=== PATIENT | male | born 1985 | race Hispanic/Latino ===

== ENCOUNTER 2018-04-25 08:21 | Inpatient (IN) | payer MEDICAID ==
[2018-04-25 08:22] VITALS: BMI 55.3
--- NOTE | 2018-04-25 10:10 | C.PDOC ---
History Of Present Illness 32 year old male patient presents to the ED after being transferred from [facility] for admission to detox. Patient admits to use of heroin. Patient had no issues during transportation. Time Seen by Provider: 04/25/18 08:35 Chief Complaint (Nursing): Substance Abuse History Per: Patient History/Exam Limitations: no limitations Onset/Duration Of Symptoms: Hrs Current Symptoms Are (Timing): Still Present Modifying Factor(s): Other (heroin ) Additional History Per: Patient Past Medical History Reviewed: Historical Data, Nursing Documentation, Vital Signs Vital Signs: Last Vital Signs Temp 98.9 F 04/25/18 08:25 Pulse 64 04/25/18 08:25 Resp 16 04/25/18 08:25 BP 124/83 04/25/18 08:25 Pulse Ox 100 04/25/18 08:25 - Medical History PMH: Denies: Diabetes, Hepatitis, HIV, HTN, Seizures, Sexually Transmitted Disease Surgical History: No Surg Hx - [facility] Procedures APPLICATION OF SPLINT (08/02/03) CLOSURE SKIN & SUBCUTANEOUS NEC (11/29/03) Family History: States: Unknown Family Hx - Social History Hx Tobacco Use: No Hx Alcohol Use: No Hx Substance Use: Yes (opiates - marjauna) - Immunization History Hx Influenza Vaccination: No Hx Pneumococcal Vaccination: No Review Of Systems Psych: Positive for: Other (heroin detox ) Physical Exam - Physical Exam Appears: Non-toxic, No Acute Distress Skin: Normal Color, Warm, Dry Head: Atraumatic, Normacephalic Eye(s): bilateral: Normal Inspection Oral Mucosa: Moist Neck: Supple Chest: Symmetrical, No Deformity Cardiovascular: Rhythm Regular Respiratory: Normal Breath Sounds Extremity: Normal ROM Neurological/Psych: Oriented x3, Normal Speech, Normal Cognition ED Course And Treatment O2 Sat by Pulse Oximetry: 100 (on RA ) Pulse Ox Interpretation: Normal Medical Decision Making Medical Decision Making: Patient transferred for detox admission. Chart and transfer forms reviewed Patient in no distress and to be admitted. Disposition Counseled Patient/Family Regarding: Diagnosis, Need For Followup - Disposition Disposition: HOSPITALIZED Disposition Time: 09:30 Condition: STABLE - POA Present On Arrival: None - Clinical Impression Clinical Impression: Opiate use - PA / [facility] / Resident Statement MD/DO has reviewed & agrees with the documentation as recorded. - Scribe Statement The provider has reviewed the documentation as recorded by the Scribe All medical record entries made by the Scribe were at my direction and personally dictated by me. I have reviewed the chart and agree that the record accurately reflects my personal performance of the history, physical exam, medical decision making, and the department course for this patient. I have also personally directed, reviewed, and agree with the discharge instructions and disposition. Decision To Admit - Pt Status Changed To: Hospital Disposition Of: Inpatient - Admit Certification Admit to Inpatient:: After my assessment, the patient will require hospital ization for at least two midnights. This is because of the severity of symptoms shown, intensity of services needed, and/or the medical risk in this patient being treated as an outpatient. - InPatient: Physician Admission Certification: I certify that this patient requires 2 or more midnights of care for the following reason:: Patient for admission to detox - . Bed Request Type: Regular Admitting Physician: Jhon Pollack Patient Diagnosis: Opiate use
--- NOTE | 2018-04-25 10:27 | PCM.BM ---
<Marian Franklin F - Last Filed: 04/25/18 10:25> Treatment assets and liabiliti Patient Assests: adapts well, insightful, ADL independent, negotiates basic needs Patient Liabilities: relationship conflicts, substance abuse - Milieu Protocol Maintain good personal hygiene: every shift Encourage regular showers, every shift Remind patient to perform daily oral care, every shift Assist patient to perform ADL's Maintain personal safety: every shift Educate patient to report safety concerns to staff, every shift Monitor environment for contraband/sharps Medication safety: Monitor for expected outcome, potential side effects: every shift, Assess barriers to learning: every shift, Assess readiness for medication education: every shift <Clarence Michaud - Last Filed: 04/25/18 15:37> - Diagnosis (1) Opioid use disorder, severe, dependence Status: Acute Interventions: 04/25/18 15:36 * Assess 7x/week regarding severity of withdrawal * Educate regarding risks, benefits, side effects and alternatives of medications * Use Motivational Interviewing for abstinence * Use CBT for relapse prevention * Medication management for withdrawal symptoms * Encourage medication assisted treatment (2) Cannabis use disorder, severe, dependence Status: Acute Interventions: 04/25/18 15:36 * Assess 7x/week regarding severity of withdrawal * Educate regarding risks, benefits, side effects and alternatives of medications * Use Motivational Interviewing for abstinence * Use CBT for relapse prevention * Medication management for withdrawal symptoms * Encourage medication assisted treatment
[2018-04-25] MEDS ORDERED: Aluminum Hydroxide/Magnesium Hydroxide Susp (30 mL) PO PRN (11:00)
--- NOTE | 2018-04-25 15:37 | PCM.PSYCH ---
Initial Psychiatric Evaluation - Initial Psychiatric Evaluation Type of Admission: Voluntary Legal Status: Capacity Chief Complaint (in patient's own words): I made a mistake. I said that I am suicidal just to get more money from my family. History of Present Illness and Precipitating Events: Patient is a 32 years old, single, employed, male with no previous psychiatric history was admitted due to withdrawing from heroin and cannabis. Opioid: Patient started having 3-4 years ago, increased gradually up to 50 bags daily, IV. Before start of heroin patient was using OxyContin, initially prescribed later was getting from Street. Patient reported that currently he was using 10-15 bags daily, IV. Last used yesterday. Longest period of abstinence was one month in July 2015 when patient was in group home. Patient was not contained on 09/04/2015 secondary to overdose on heroin and became unconscious. Patient has history of one detox and no rehabs. Cannabis: Patient started using cannabis at 18 years of age, was using 8th of an oz every 2-3 days last used yesterday. Denied use of any other drugs including cocaine and alcohol. Denied smoking cigarettes. Patient reported that initially he had some altercation with his family in order to get money to buy more drugs. When he didn't get any money from the family he made a statement that he will kill himself by jumping from a bridge. Later patient reported that this was a mistake, he was not suicidal he just made the statement in order to get money from the family. Instead family called 911 and patient was brought to the ER for evaluation. Patient reported that he explained this to police and EMT and later in the ER. During evaluation patient also denied any suicidal or homicidal ideations currently or any time in the past. Patient was in group home in July 2015 due to who is a student rest and also for possession of drugs. He is not on probation. Patient has history of left clavicle repair or November 2013. Patient was born in [place] and has one year of college. He is working. Patient lives with friend. His height is 5 feet 9 inches and weight is 185 pounds. Current Medications: Active Medications Generic Name Dose Route Start Last Admin Trade Name Freq PRN Reason Stop Dose Admin Al Hydrox/Mg Hydrox/Simethicone 30 ml 04/25/18 11:00 Maalox 30 Ml PO TID PRN Indigestion / Heartburn Clonidine HCl 0.1 mg 04/25/18 11:00 Catapres PO Q4 PRN COWS Score More or Equal to 5 Dicyclomine HCl 10 mg 04/25/18 11:03 Bentyl PO Q6 PRN Abdominal Cramps Gabapentin 300 mg 04/25/18 14:00 04/25/18 13:17 Neurontin PO 300 mg TID SWAPNIL Administration Hydroxyzine HCl 25 mg 04/25/18 11:04 Atarax PO Q6 PRN Anxiety Ibuprofen 400 mg 04/25/18 11:01 04/25/18 13:21 Motrin Tab PO 400 mg Q6 PRN Administration Pain, moderate (4-7) Loperamide HCl 2 mg 04/25/18 11:00 Imodium PO Q8 PRN Diarrhea Ondansetron HCl 4 mg 04/25/18 11:00 Zofran Tab PO Q8 PRN Nausea/Vomiting Trazodone HCl 50 mg 04/25/18 22:00 Desyrel PO HS SWAPNIL Past Psychiatric History - Past Psychiatric History Previous Treatment History: None History of Abuse: None reported History of ETOH/Drug Use: See HPI History of Family Illness: None reported Pertinent Medical Hx (Current Medical&Sleep Prob, Allergies): Allergies Allergy/AdvReac Type Severity Reaction Status Date / Time No Known Allergies Allergy Verified 04/25/18 08:27 No Known Home Med 02/06/14 Review of Systems - Psychiatric Psychiatric: As Per HPI, Anxiety, Irritability Mental Status Examination - Personal Presentation Personal Presentation: Looks stated age - Affect Affect: Other (Appropriate) - Motor Activity Motor Activity: Calm - Reliability in Providing Information Reliability in Providing Information: Fair - Speech Speech: Organized - Mood Mood: Anxious - Formal Thought Process Formal Thought Process: No Impairment - Hallucinations/Delusions Hallucinations: Other (None reported) Delusions: Other - Obsessions/Compulsions Obsessions: None Compulsions: None - Cognitive Functions Orientation: Person, Place, Situation, Time Sensorium: Alert Attention/Concentration: Attentive Abstract Thinking: [place] Estimate of Intelligence: Average Judgement: Intact, as evidence by: Insight regarding need for hospitalization Memory: Recent intact, as evidence by: Ability to recall events of the day, Remote intact, as evidenced by: Ability to recall historical events - Risk Risk: Withdrawal, Diminished functioning - Strength & Assets Inventory Strength & Assets Inventory: Family support, Cooperative - Limitations Limitations: Other DSM 5 DX - DSM 5 DSM 5 Diagnosis: Opioid withdrawal Opioid use disorder severe. Cannabis withdrawal. Cannabis use disorder severe - Recommended/Plan of Treatment Treatment Recommendations and Plan of Treatment: Patient education. Supportive therapy. CBT for relapse prevention. NV for abstinence. We'll start methadone taper for opiate withdrawal symptoms. Other when necessary medications. Patient doesn't want to go to any place for follow-up care after discharge from the hospital. Education provided still refused. Projected ELOS: 4-5 days. - Smoking Cessation Smoking Cessation Initiated: No Reason for not providing: Patient does not smoke cigarettes
--- NOTE | 2018-04-26 21:59 | PCM.PYCHPN ---
Psychiatric Progress Note - Psychiatric Progress Note Patient seen today, length of contact: 15 minutes Patient Chief Complaint: I am feeling little better. Problems Identified/Issues Discussed: Patient seen, chart reviewed, case discussed with the staff. Issues related to illness and treatment were discussed with the patient and staff. Reported compliant with treatment with no adverse effect. Calm and cooperative. Reported feeling little better. Still having withdrawal symptoms including shaking, sweating, body aches and headache. Awake, alert and oriented x3. Mood reported as anxious. Affect appropriate. Memory intact. Aftercare discussed with the patient. Denied any delusions, auditory or visual hallucinations, suicidal ideations or homicidal ideations at the time of evaluation. Medical Problems: None reported Diagnostic Results: Reviewed DSM 5 Symptoms Update: Some improvement with treatment. Medication Change: No Medical Record Reviewed: Yes Mental Status Examination - Cognitive Function Orientation: Person, Place, Situation, Time Memory: Intact Attention: WNL Concentration: WNL Association: [facility] Fund of Knowledge: [facility] Decription of patient's judgement and insights: Fair - Mood Mood: Anxious - Affect Affect: Other (Appropriate) - Speech Speech: Appropriate - Formal Thought Process Formal Thought Process: No Impairment Psychotic Thoughts and Behaviors: None - Suicidal Ideation Suicidal Ideation: No - Homicidal Ideation Homicidal Ideation: No Goal/Treatment Plan - Goal/Treatment Plan Need for Continued Stay: Remain at risks for inpatient hospitalization, Discharge may exacerbated symptoms, Severe functional impairment Progress Toward Problem(s) and Goals/Treatment Plan: Patient education. Supportive therapy. CBT for relapse prevention. ND for abstinence. Continue treatment as before. Estimated Date of D/C: 04/29/18 - Smoking Cessation Smoking Cessation Initiated: No
--- NOTE | 2018-04-27 22:26 | PCM.PYCHPN ---
Psychiatric Progress Note - Psychiatric Progress Note Patient seen today, length of contact: 15 minutes Patient Chief Complaint: I am feeling much better. Problems Identified/Issues Discussed: Patient seen, chart reviewed, case discussed with the staff. Issues related to illness and treatment were discussed with the patient and staff. Reported compliant with treatment with no adverse effect. Calm and cooperative. Reported feeling much better. Awake, alert and oriented x3. Mood reported as anxious. Affect appropriate. Memory intact. Aftercare discussed with the patient. Denied any delusions, auditory or visual hallucinations, suicidal ideations or h omicidal ideations at the time of evaluation. Medical Problems: None reported Diagnostic Results: Reviewed DSM 5 Symptoms Update: Improving with treatment. Medication Change: No Medical Record Reviewed: Yes Mental Status Examination - Cognitive Function Orientation: Person, Place, Situation, Time Memory: Intact Attention: WNL Concentration: WNL Association: WNL Fund of Knowledge: WN Decription of patient's judgement and insights: Fair - Mood Mood: Anxious (Less than before) - Affect Affect: Other (Appropriate) - Speech Speech: Appropriate - Formal Thought Process Formal Thought Process: No Impairment Psychotic Thoughts and Behaviors: None - Suicidal Ideation Suicidal Ideation: No - Homicidal Ideation Homicidal Ideation: No Goal/Treatment Plan - Goal/Treatment Plan Need for Continued Stay: Remain at risks for inpatient hospitalization, Discharge may exacerbated symptoms, Severe functional impairment Progress Toward Problem(s) and Goals/Treatment Plan: Patient education. Supportive therapy. CBT for relapse prevention. [place] for abstinence. Continue treatment as before. Estimated Date of D/C: 04/29/18 - Smoking Cessation Smoking Cessation Initiated: No
--- NOTE | 2018-04-28 16:21 | PCM.PYCHPN ---
Psychiatric Progress Note - Psychiatric Progress Note Patient seen today, length of contact: 15 minutes Patient Chief Complaint: I am feeling much better. Problems Identified/Issues Discussed: Patient seen, chart reviewed, case discussed with the staff. Issues related to illness and treatment were discussed with the patient and staff. Reported compliant with treatment with no adverse effect. Tolerating treatment very well. Calm and cooperative. Reported feeling much better. Awake, alert and oriented x3. Mood reported as anxious. Affect appropriate. Memory intact. Aftercare discussed with the patient. Denied any delusions, auditory or visual hallucinations, suicidal ideations or homicidal ideations at the time of evaluation. Medical Problems: None reported Diagnostic Results: Reviewed DSM 5 Symptoms Update: Improving with treatment. Medication Change: No Medical Record Reviewed: Yes Mental Status Examination - Cognitive Function Orientation: Person, Place, Situation, Time Memory: Intact Attention: WNL Concentration: WNL Association: [facility]N Fund of Knowledge: [facility] Decription of patient's judgement and insights: Fair - Mood Mood: Anxious (Much less than before) - Affect Affect: Other (Appropriate) - Speech Speech: Appropriate - Formal Thought Process Formal Thought Process: No Impairment Psychotic Thoughts and Behaviors: None - Suicidal Ideation Suicidal Ideation: No - Homicidal Ideation Homicidal Ideation: No Goal/Treatment Plan - Goal/Treatment Plan Need for Continued Stay: Remain at risks for inpatient hospitalization, Discharge may exacerbated symptoms, Severe functional impairment Progress Toward Problem(s) and Goals/Treatment Plan: Patient education. Supportive therapy. CBT for relapse prevention. [place] for abstinence. Continue treatment as before. Estimated Date of D/C: 04/29/18 - Smoking Cessation Smoking Cessation Initiated: No
[2018-04-29 06:30] VITALS: RESP 18
--- NOTE | 2018-04-29 09:57 | PCM.PYCHDC ---
Mental Status Examination - Mental Status Examination Orientation: Person, Place, Situation, Time Memory: Intact Mood: Neutral Affect: Other (Appropriate) Speech: Appropriate Attention: WNL Concentration: WNL Association: WNL Fund of Knowledge: WNL Formal Thought Process: No Impairment Description of patient's judgement and insight: Fair Psychotic Thoughts and Behaviors: None Suicidal Ideation: No Current Homicidal Ideation?: No Discharge Summary - Discharge Note Reason for Hospitalization: Opioid withdrawal. Opioid use disorder severe Cannabis withdrawal Cannabis use disorder severe Laboratory Data: Reviewed Consultations:: List each consultation separately and include: 1. Reason for request. 2. Findings. 3. Follow-up Summary of Hospital Course include:: 1. Description of specific treatment plan utilized for patients during their course of treatmen. 2. Summarize the time- course for resolution of acute symptoms and/or regressed behaviors. 3. Describe issues identified and worked on during hospitalization. 4. Describe medication utilized. 5. Describe medical problems identified and treated. 6. Reassessment of suicide risk Summary of Hospital Course: Patient is a 32 years old, single, employed, male with no previous psychiatric history was admitted due to withdrawing from heroin and cannabis. Opioid: Patient started having 3-4 years ago, increased gradually up to 50 bags daily, IV. Before start of heroin patient was using OxyContin, initially prescribed later was getting from [facility]. Patient reported that currently he was using 10-15 bags daily, IV. Last used yesterday. Longest period of abstinence was one month in July 2015 when patient was in nursing home. Patient was not contained on 09/04/2015 secondary to overdose on heroin and became unconscious. Patient has history of one detox and no rehabs. Cannabis: Patient started using cannabis at 18 years of age, was using 8th of an oz every 2-3 days last used yesterday. Denied use of any other drugs including cocaine and alcohol. Denied smoking cigarettes. Patient reported that initially he had some altercation with his family in order to get money to buy more drugs. When he didn't get any money from the family he made a statement that he will kill himself by jumping from a bridge. Later patient reported that this was a mistake, he was not suicidal he just made the statement in order to get money from the family. Instead family called 911 and patient was brought to the ER for evaluation. Patient reported that he explained this to police and EMT and later in the ER. During evaluation patient also denied any suicidal or homicidal ideations currently or any time in the past. Patient was in nursing home in July 2015 due to who is a student rest and also for possession of drugs. He is not on probation. Patient has history of left clavicle repair or November 2013. Patient was born in [place] and has one year of college. He is working. Patient lives with friend. His height is 5 feet 9 inches and weight is 185 pounds. - Diagnosis (1) Opioid use disorder, severe, dependence Status: Acute (2) Cannabis use disorder, severe, dependence Status: Acute - Final Diagnosis (DSM 5) Condition upon Discharge: STABLE Disposition: HOME/ ROUTINE Follow-up Treatment Plan: Patient went home. Patient didn't want to go for any follow-up care even after education provided. Prescriptions/Medication Reconciliation: RX: Gabapentin [Neurontin] 300 mg PO TID #90 cap RX: traZODone [Desyrel] 50 mg PO HS #30 tab - Smoking Cessation Smoking Cessation Medication prescribed: No - Antipsychotic Medications Pt discharged on 2 or more routine antipsychotic medications: No
[2018-04-29 11:03] VITALS: BP 114/74; PULSE 61; TEMP 97.6; O2SAT 98
== END 2018-04-29 12:00 | disposition home or self-care (01) | DRG 745 ==
LOC: C.ER 08:21 → C.7D 09:36
PROVIDERS: ADMIT Psychiatry & Neurology Psychiatry; ATTEND Psychiatry & Neurology Psychiatry
PROC: HZ52ZZZ Individual Psychotherapy for Substance Abuse Treatment, Cognitive-Behavioral (ICD-10-PCS; principal; 2018-04-25)
PROC: HZ2ZZZZ Detoxification Services for Substance Abuse Treatment (ICD-10-PCS; 2018-04-25)
PROC: HZ59ZZZ Individual Psychotherapy for Substance Abuse Treatment, Supportive (ICD-10-PCS; 2018-04-25)
PROC: HZ56ZZZ Individual Psychotherapy for Substance Abuse Treatment, Psychoeducation (ICD-10-PCS; 2018-04-25)
PROC: HZ42ZZZ Group Counseling for Substance Abuse Treatment, Cognitive-Behavioral (ICD-10-PCS; 2018-04-25)
PROC: HZ46ZZZ Group Counseling for Substance Abuse Treatment, Psychoeducation (ICD-10-PCS; 2018-04-25)
PROC: GZHZZZZ Group Psychotherapy (ICD-10-PCS; 2018-04-25)
PROC: GZ58ZZZ Individual Psychotherapy, Cognitive-Behavioral (ICD-10-PCS; 2018-04-25)
PROC: GZ56ZZZ Individual Psychotherapy, Supportive (ICD-10-PCS; 2018-04-25)
DX: F11.23 Opioid dependence with withdrawal (principal); F12.23 Cannabis dependence with withdrawal